=== PATIENT | female | born 1985 | race Caucasian/White ===

== ENCOUNTER 2024-12-11 14:39 | Emergency (ER) | payer OTHER, SELFPAY ==
[2024-12-11] VITALS (7 sets, daily range): BP systolic 110–126; BP diastolic 67–74; PULSE 75–103; TEMP 36.4; O2SAT 95–99; BMI 24.3
--- NOTE | 2024-12-11 15:32 | XR_ITS ---
The [address] [address] Patient Name: TIM CAZARES MRN: [id number] date: 1985 Sex: F Assigned Patient Location: ER Current Patient Location: ER Accession/Order Number: [id number] Exam Date: 12/11/2024 15:55 Report Date: 12/11/2024 15:55 At the request of: FRANK MENDEZ MD Procedure: XR chest 1V Single view chest: CLINICAL HISTORY: CP COMPARISON: None FINDINGS: The heart is normal in size. The lungs are clear. The pulmonary vasculature is normal. Mediastinum and hilar regions are unremarkable. No pleural effusions are seen. Visualized bones are intact. XR/XR chest 1V IMPRESSION: NEGATIVE CHEST. Impression dictated by: José Miguel George Jr. DKarelyOKarely 12/11/2024 3:55 PM Dictation Location: [place] [address] Electronically authenticated by: [id number] Y Date: 12/11/2024 15:55
--- NOTE | 2024-12-11 15:32 | ECG_ITS ---
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 Measurements Intervals [place] Rate: 92 P: 78 NV: 128 QRS: 74 QRSD: 76 T: 64 QT: 342 QTc: 391 Interpretive Statements 1100 Sinus rhythm 9110 normal ECG No previous ECG available for comparison Electronically Signed On 12-11-2024 20:54:00 EDT by EMILY PRETTY M.D.
--- NOTE | 2024-12-11 15:34 | ED.GENADUL1 ---
HPI HPI - General Adult General Chief complaint: Chest Pain Stated complaint: CHEST PAIN, BILATERAL ARM PAIN, L SIDED RIB PAIN Time Seen by Provider: 12/11/24 14:43 Source: patient Mode of arrival: walk-in Limitations: no limitations History of Present Illness HPI narrative: 39-year-old female presents to the emergency department for chief complaint of chest pain. About 2 and a half hours ago she was walking and felt a sharp pain in her left upper chest. Her right arm became numb and the sharp pain went away in her chest and then it came back and then her left arm became numb. She had a little bit of pain in her back. The patient does not believe that this is anxiety. There was no trauma or fever or cough or shortness of breath. No palpitations or syncope or presyncope. Related Data Home Medications ?Medication ?Instructions ?Recorded ?Confirmed acetaminophen 500 mg tablet 500 mg PO PRN pain 12/11/24 buspirone 10 mg tablet 10 mg PO DAILY 12/11/24 12/11/24 duloxetine 30 mg capsule,delayed 30 mg PO DAILY 12/11/24 12/11/24 release ibuprofen 800 mg tablet 800 mg PO PRN fever or pain 12/11/24 lumateperone 21 mg capsule 21 mg PO DAILY 12/11/24 12/11/24 (Caplyta) melatonin 10 mg capsule 10 mg PO .nightly 12/11/24 12/11/24 multivitamin 1 tab PO DAILY 12/11/24 12/11/24 trazodone 50 mg tablet 50 mg PO PRN sleep 12/11/24 viloxazine 200 mg capsule,extended 200 mg PO DAILY 12/11/24 12/11/24 release 24 hr (Qelbree) Allergies Allergy/AdvReac Type Severity Reaction Status Date / Time lamotrigine (From Lamictal) Allergy Intermediate Rash Verified 12/11/24 14:53 fentanyl Allergy Mild Anaphylaxis Verified 12/11/24 14:53 Review of Systems ROS Narrative A ten point review of systems is negative except as noted above. PFSH PFSH Social History Little interest or pleasure in doing things: not at all Feeling down, depressed, or hopeless: not at all Exam Narrative Exam Narrative: Nurses note and vital signs reviewed and patient is not hypoxic. General: The patient appears well and in no apparent distress. Patient is resting comfortably on cart. Skin: Warm, dry, no pallor noted. There is no rash noted. Head: Normocephalic, atraumatic Eye: Normal conjunctiva, no drainage Ears, Nose, Mouth, and Throat: oral mucosa is moist. Nares patent. Cardiovascular: Regular Rate and Rhythm Respiratory: Patient is in no distress, no accessory muscle use, lungs are clear to auscultation, no wheezing, rales or rhonchi. Palpation of the left upper chest shows no crepitus. There is no bruise or rash. Palpation seems to reproduce her pain. Back: non-tender GI: Soft and nontender Musculoskeletal: The patient has no evidence of calf tenderness, no pitting edema, symmetrical pulses noted bilaterally Neurological: A&O, normal speech Psychiatric: Cooperative Constitutional Vital Signs, click to edit/add: Last Vital Signs Temp 97.6 F 12/11/24 14:50 Pulse 103 H 12/11/24 15:30 Resp 17 12/11/24 15:30 BP 110/67 12/11/24 14:50 Pulse Ox 98 12/11/24 15:30 O2 Del Method Room Air 12/11/24 14:50 Course Vital Signs Vital signs: Vital Signs Blood Pressure 110/67 12/11/24 14:48 Pulse Oximetry 97 12/11/24 14:48 Temperature 97.6 F 12/11/24 14:50 Pulse Rate 103 H 12/11/24 15:30 Respiratory Rate 17 12/11/24 15:30 Blood Pressure 110/67 12/11/24 14:50 Pulse Oximetry 98 12/11/24 15:30 Oxygen Delivery Method Room Air 12/11/24 14:50 Medical Decision Making [facility] Narrative Medical decision making narrative: Her workup including troponin and D-dimer is negative. My clinical impression is that this is chest wall pain. She is being discharged and will follow-up with her doctor if symptoms persist. Treatment diagnosis and follow-up were discussed with the patient. Differential Diagnosis Differential Diagnosis: Myocardial infarction, PE, pneumothorax, chest wall pain Lab Data Lab results reviewed: Yes I reviewed the patient's lab results Labs: Lab Results 12/11/24 Range/Units 15:40 WBC 8.3 (4.0-11.0) 10^3/uL RBC 3.61 L (4.20-5.40) 10^6/uL Hgb 11.4 L (12.0-16.0) g/dL Hct 33.8 L (36.0-48.0) % MCV 93.6 (81.0-99.0) fL MCH 31.6 (26.7-34.0) pg MCHC 33.7 (29.9-35.2) g/dL RDW 14.6 (11.0-15.0) % Plt Count 237 (150-450) 10^3/uL MPV 9.9 (9.5-13.5) fL Neut % (Auto) 66.6 (43.0-75.0) % Lymph % (Auto) 23.3 (20.5-60.0) % Alcorn % (Auto) 6.5 (1.7-12.0) % Eos % (Auto) 2.6 (0.9-7.0) % Baso % (Auto) 0.8 (0.2-2.0) % Neut # (Auto) 5.5 (1.4-6.5) 10^3/uL Lymph # (Auto) 1.9 (1.2-3.8) 10^3/uL Alcorn # (Auto) 0.5 (0.3-0.8) 10^3/uL Eos # (Auto) 0.2 (0.0-0.7) 10^3/uL Baso # (Auto) 0.1 (0.0-0.1) 10^3/uL Abs Immat Gran (auto) 0.02 (0.00-0.03) 10^3/uL Imm/Tot Granulo (auto) 0.2 (0.0-0.5) % D-Dimer 0.23 (<=0.59) mg/L FEU Sodium 140 (136-145) mmol/L Potassium 4.2 (3.5-5.1) mmol/L Chloride 104 (98-107) mmol/L Carbon Dioxide 31.5 (21.0-32.0) mmol/L Anion Gap 8.7 BUN 17.0 (7.0-18.0) mg/dL Creatinine 0.59 (0.55-1.02) mg/dL Est GFR ( Amer) >60 (>=60 mL/min/1.73m^2) Est GFR (Non-Af Amer) >60 (>=60 mL/min/1.73m^2) BUN/Creatinine Ratio 28.8 Glucose 107 H (74-106) mg/dL Calcium 8.4 L (8.5-10.1) mg/dL Troponin I High Sens <4.0 L (4.0-51.3) pg/mL Imaging Data Chest x-ray: Radiologist's impression: ITS Impressions Chest X-Ray 12/11/24 15:32 IMPRESSION: NEGATIVE CHEST. Impression dictated by: José Miguel George Jr., D.O. 12/11/2024 3:55 PM Dictation Location: [place] [address] Electronically authenticated by: [id number] Y Date: 12/11/2024 15:55 ECG Data Attestation: I personally reviewed and interpreted this ECG as follows: (EKG on my interpretation shows sinus rhythm with rate of 92 and no acute change.) Discharge Plan Discharge Chief Complaint: Chest Pain Clinical Impression: Chest pain Patient Disposition: Home, Self-Care Time of Disposition Decision: 16:27 Condition: Good Mode of Transportation: Private Vehicle Prescriptions / Home Meds: No Action multivitamin Tablet 1 tab PO DAILY trazodone 50 mg tablet 50 mg PO PRN (Reason: sleep) ibuprofen 800 mg tablet 800 mg PO PRN (Reason: fever or pain) acetaminophen 500 mg tablet 500 mg PO PRN (Reason: pain) buspirone 10 mg tablet 10 mg PO DAILY duloxetine 30 mg capsule,delayed release(DR/EC) 30 mg PO DAILY melatonin 10 mg capsule 10 mg PO .nightly Qelbree 200 mg capsule,extended release 24hr 200 mg PO DAILY Caplyta 21 mg capsule 21 mg PO DAILY Print Language: Maori Instructions: Chest Pain (ED) Referrals: Physician,Non-Staff, MD [Primary Care Provider] - 1 week
[2024-12-11 16:08] LABS: Hematocrit 33.8 % (36.0-48.0); Hemoglobin 11.4 g/dL (12.0-16.0); Immature Granulocytes Abs Auto 0.02 10^3/uL (0.00-0.03); Immature Granulocytes Pct Auto 0.2 % (0.0-0.5); Lymphocytes Absolute Auto 1.9 10^3/uL (1.2-3.8); Mean Corpuscular HGB Conc 33.7 g/dL (29.9-35.2); Mean Corpuscular Hemoglobin 31.6 pg (26.7-34.0); Mean Corpuscular Volume 93.6 fL (81.0-99.0); Platelet Count 237 10^3/uL (150-450); Red Blood Count 3.61 10^6/uL (4.20-5.40); White Blood Count 8.3 10^3/uL (4.0-11.0)
[2024-12-11 16:17] LABS: Anion Gap 8.7; Blood Urea Nitrogen 17.0 mg/dL (7.0-18.0); Calcium 8.4 mg/dL (8.5-10.1); Carbon Dioxide 31.5 mmol/L (21.0-32.0); Chloride 104 mmol/L (98-107); Estimated GFR (African America >60 (>=60 mL/min/1.73m^2); Estimated GFR (Non-African Ame >60 (>=60 mL/min/1.73m^2); Glucose 107 mg/dL (74-106); Potassium 4.2 mmol/L (3.5-5.1); Sodium 140 mmol/L (136-145)
== END 2024-12-11 16:45 | disposition home or self-care (01) ==
PROVIDERS: Emergency Provider Emergency Medicine
DX: R07.89 Other chest pain (principal); R20.0 Anesthesia of skin; M54.6 Pain in thoracic spine
CPT/HCPCS: 36415; 71045; 80048; 84484; 85025; 85378; 93005; 99285